=== PATIENT | female | born 1990 | race Caucasian/White ===

== ENCOUNTER 2016-10-19 12:31 | Inpatient (IN) | payer BC, OTHER ==
--- NOTE | 2016-10-19 12:57 | ED ---
Psych HPI - General Chief Complaint: Psychiatric Symptoms Stated Complaint: Mental Health Time Seen by Provider: 10/19/16 12:44 Source: patient, RN notes reviewed Mode of arrival: ambulatory Limitations: no limitations - History of Present Illness Initial Comments: 26 year old female presents emergency Department chief complaint depression suicidal thoughts. Patient states the last week she's felt suicidal states she plans to jump off an overpass her bridge. Patient states that she has a long history of depression sees psychiatrist in [place]. Patient states she is on multiple medications are not helping. Patient states that she occasionally uses marijuana and occasional alcohol use. She states she's not dependent on this. Patient denies any physical complaints at this time. - Related Data Home Medications Medication Instructions Recorded Confirmed ALPRAZolam [Xanax] 0.5 mg PO TID PRN 10/19/16 10/19/16 ARIPiprazole [Abilify] 5 mg PO DAILY 10/19/16 10/19/16 Aspirin/Acetaminophen/Caffeine 1 tab PO DAILY PRN 10/19/16 10/19/16 [Excedrin Migraine Caplet] PARoxetine HCL [Paxil] 40 mg PO HS 10/19/16 10/19/16 PARoxetine [Paxil] 10 mg PO HS 10/19/16 10/19/16 Zolpidem [Ambien] 10 mg PO HS PRN 10/19/16 10/19/16 oxyCODONE-APAP 5-325MG [Percocet 1 tab PO Q6HR PRN 10/19/16 10/19/16 5-325 mg] Allergies Allergy/AdvReac Type Severity Reaction Status Date / Time Sulfa (Sulfonamide Allergy Swelling Verified 10/19/16 13:26 Antibiotics) Review of Systems ROS Statement: Those systems with pertinent positive or pertinent negative responses have been documented in the HPI. ROS Other: All systems not noted in ROS Statement are negative. Past Medical History Past Medical History: No Reported History Additional Past Medical History / Comment(s): states hx of kidney reflux as a child. states one kidney very smnall compared to the other. unsure of which is functioning more than the other. History of Any Multi-Drug Resistant Organisms: None Reported Past Surgical History: Orthopedic Surgery Additional Past Surgical History / Comment(s): History of surgery on her right ankle, CIGARETTE SELLER shunt Past Psychological History: Anxiety, Depression Additional Psychological History / Comment(s): hx of anx and depression. prev on prozac and lexipro. no meds for 2 years. Smoking Status: Never smoker Past Alcohol Use History: None Reported Past Drug Use History: None Reported - Past Family History Mother Additional Family Medical History / Comment(s): gallbladder surgery- mother Brother(s) Family Medical History: Asthma Additional Family Medical History / Comment(s): previous diagnosed diabetes. no longer medicated after 100 pound weight loss. General Exam Limitations: no limitations General appearance: alert, in no apparent distress Head exam: Present: atraumatic, normocephalic, normal inspection Eye exam: Present: normal appearance, PERRL, EOMI. Absent: scleral icterus, conjunctival injection, periorbital swelling ENT exam: Present: normal exam, normal oropharynx, mucous membranes moist, TM's normal bilaterally Neck exam: Present: normal inspection. Absent: tenderness, meningismus, lymphadenopathy Respiratory exam: Present: normal lung sounds bilaterally. Absent: respiratory distress, wheezes, rales, rhonchi, stridor Cardiovascular Exam: Present: regular rate, normal rhythm, normal heart sounds. Absent: systolic murmur, diastolic murmur, rubs, gallop, clicks GI/Abdominal exam: Present: soft, normal bowel sounds. Absent: distended, tenderness, guarding, rebound, rigid Neurological exam: Present: alert, oriented X3, CN II-XII intact Psychiatric exam: Present: depressed, flat affect Skin exam: Present: warm, dry, intact, normal color. Absent: rash Course Vital Signs 10/19/16 12:38 Temperature 99.7 F H Pulse Rate 99 Respiratory 18 Rate Blood Pressure 127/87 O2 Sat by Pulse 98 Oximetry Medical Decision Making - Lab Data Lab Results 10/19/16 Range/Units 12:49 Urine Opiates Screen Not Detected (NotDetected) Ur Oxycodone Screen Not Detected (NotDetected) Urine Methadone Screen Not Detected (NotDetected) Ur Propoxyphene Screen Not Detected (NotDetected) Ur Barbiturates Screen Not Detected (NotDetected) U Tricyclic Antidepress Not Detected (NotDetected) Ur Phencyclidine Scrn Not Detected (NotDetected) Ur Amphetamines Screen Not Detected (NotDetected) U Methamphetamines Scrn Not Detected (NotDetected) U Benzodiazepines Scrn Detected H (NotDetected) Urine Cocaine Screen Not Detected (NotDetected) U Marijuana (THC) Screen Not Detected (NotDetected) Disposition Clinical Impression: Depression, Suicidal ideation Disposition: ADMITTED IP TO THIS HOSP Condition: Stable
[2016-10-19 15:03] VITALS: BP 118/78; PULSE 75; RESP 20; TEMP 98.3
[2016-10-19] MEDS ORDERED: ACETAMINOPHEN TAB 325 MG TAB PO PRN (16:10)
[2016-10-19] MEDS ORDERED: MAG HYDROX/AL HYDROX/SIMETH 30 ML CUP PO PRN (16:10)
[2016-10-19] MEDS ORDERED: MAGNESIUM HYDROXIDE 2,400 MG/10 ML CUP PO PRN (16:10)
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
[2016-10-19 19:29] LABS: Glucose,Whole Blood 104 mg/dL (75-99)
[2016-10-19] MEDS ORDERED: ONDANSETRON 4 MG TAB PO PRN (19:41)
--- NOTE | 2016-10-19 20:48 | CT ---
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 FINDINGS: Ventricles and sulci appear normal. There is no mass effect or midline shift. There is no sign of int racranial hemorrhage. There is a ventricular shunt catheter on the right side that has the tip in the third ventricle. Calvarium is intact. Catheter enters the right posterior frontal bone. IMPRESSION: Catheter appears in good position. No hydrocephalus. Normal CT scan of the brain.
[2016-10-19] MEDS ORDERED: clonazePAM 1 MG TAB PO SCH (21:00)
[2016-10-19] MEDS ORDERED: PRAZOSIN 1 MG CAP PO SCH (21:00)
[2016-10-19] MEDS ORDERED: PARoxetine 10 MG TAB PO SCH (21:00)
[2016-10-19] MEDS ORDERED: QUEtiapine 200 MG TAB PO SCH (21:00)
[2016-10-19] MEDS ORDERED: PARoxetine 20 MG TAB PO SCH (21:00)
[2016-10-20] MEDS ORDERED: ARIPiprazole 5 MG TAB PO SCH (09:00)
[2016-10-20] MEDS ORDERED: CITALOPRAM HYDROBROMIDE 10 MG TAB PO SCH (18:00)
--- NOTE | 2016-10-28 08:47 | P.DS ---
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 She was on the mental health unit for about 4 hours, then began to complain of headache and nausea and vomiting. Patient was assessed and it was deemed that she needed to have her shunt evaluated, medical decision. Contacted by the stockroom coordinator from [facility] where patient had had her surgery 1 month ago. Spoke to the neurosurgeon who accepted her. She was transported to the [facility]. Patient Condition at Discharge: Stable Plan - Discharge Summary Discharge Medication List ALPRAZolam [Xanax] 0.5 mg PO TID PRN 10/19/16 [History] ARIPiprazole [Abilify] 5 mg PO DAILY 10/19/16 [History] Aspirin/Acetaminophen/Caffeine [Excedrin Migraine Caplet] 1 tab PO DAILY PRN 03/28 [History] PARoxetine HCL [Paxil] 40 mg PO HS 10/19/16 [History] PARoxetine [Paxil] 10 mg PO HS 10/19/16 [History] Zolpidem [Ambien] 10 mg PO HS PRN 10/19/16 [History] oxyCODONE-APAP 5-325MG [Percocet 5-325 mg] 1 tab PO Q6HR PRN 10/19/16 [History] Follow up Appointment(s)/Referral(s): Kayla Neville MD [Primary Care Provider] - 1-2 days Discharge Disposition: TRANSFER TO [facility]ORT [facility]
== END 2016-10-20 02:00 | disposition short-term general hospital (02) | DRG 885 ==
LOC: EC 12:31 → 3MHU 14:38
PROVIDERS: ADMIT Psychiatry & Neurology Addiction Medicine; ATTEND Psychiatry & Neurology Addiction Medicine
DX: F33.2 Major depressive disorder, recurrent severe without psychotic features (principal); R45.851 Suicidal ideations; R51 Headache; R11.2 Nausea with vomiting, unspecified; F12.90 Cannabis use, unspecified, uncomplicated; G93.2 Benign intracranial hypertension; Z91.5 Personal history of self-harm; Z98.2 Presence of cerebrospinal fluid drainage device; Z79.899 Other long term (current) drug therapy
CPT/HCPCS: 70450; 80306; 82075; 99285